=== PATIENT | male | born 1960 | race Caucasian/White ===

== ENCOUNTER 2018-12-26 13:05 | Outpatient (CLI) | payer OTHER ==
--- NOTE | 2018-12-26 15:40 | MRI ---
MRI Brain W WO Con: 12/26/2018 12:00 AM CLINICAL HISTORY: Unspecified hearing loss, left ear. COMPARISON: None. FINDINGS: Extra axial spaces: Normal in size and morphology for the patient's age. Acute infarction: None. Ventricular system: Normal in size and morphology for the patient's age. Cavum septum lucidum et vergae. Basal cisterns: Normal. Cerebral parenchyma: Minimal periventricular gliosis likely relates to microvascular ischemic disease . Midline shift: None. Cerebellum: Normal. Brainstem: Normal. Paranasal sinuses:Clear Intraaxial Enhancement: None There is no pathologic enhancement or mass at either CP angle cistern. IMPRESSION: No acute intracranial abnormality. No pathologic enhancement or mass effect of either CP angle cistern.
== END 2018-12-26 13:06 | disposition home or self-care (01) ==
LOC: BICMRI 13:05
PROVIDERS: ATTEND Specialist
DX: R42 Dizziness and giddiness (principal); H91.92 Unspecified hearing loss, left ear; R11.0 Nausea
CPT/HCPCS: 36415; 70553; 80069